=== PATIENT | female | born 1975 | race Caucasian/White ===

== ENCOUNTER 2020-05-15 14:51 | Emergency (ER) | payer OTHER, SELFPAY ==
[2020-05-15 14:52] VITALS: BP 147/81; PULSE 96; RESP 20; TEMP 36.8; O2SAT 100; BMI 36.6
--- NOTE | 2020-05-15 15:15 | CT_ITS ---
PROCEDURE: CT ABDOMEN PELVIS WO CON CLINICAL INDICATION: pain Right lower abdominal pain COMPARISON: No exams were available for comparison TECHNIQUE: Axial images obtained with sagittal and coronal reformats. All CT scans at the facility use one or more dose reduction, viz: automated exposure control, ma/kV adjustment per patient size (including targeted exams where dose is matched to indication, i.e. head), or iterative reconstruction technique. FINDINGS: LOWER THORAX: Coronary artery calcification ABDOMEN & PELVIS: Fatty liver. The spleen, adrenal glands, pancreas, and kidneys have an unremarkable appearance. Calcification overlying the left renal pelvis is likely vascular. No evidence of appendicitis. No intestinal obstruction or free air. No evidence diverticulitis. No renal or ureteral calculi No acute bony finding. IMPRESSION: No acute finding Dictated by: Tom Cosme MD 05/15/2020 16:21 Tom Cosme MD in [place] 05/15/2020 16:21
--- NOTE | 2020-05-15 15:22 | PC.NURSE ---
Pt unable to urinate at this time.
--- NOTE | 2020-05-15 15:35 | PC.NURSE ---
patient to xray
[2020-05-15 15:40] LABS: Basophils # 0.1 K/mm3 (0-0.2); Basophils % 1.2 % (0.1-2.0); Eosinophils # 0.2 K/mm3 (0.0-0.4); Eosinophils % 1.2 % (0.1-12.0); Hematocrit 46.1 % (37.0-47.0); Lymphocytes # 3.8 K/mm3 (0.7-4.5); Lymphocytes % 31.4 % (10-50); Mean Corpuscular HGB Conc 32.5 g/dL (31.8-35.4); Mean Corpuscular Hemoglobin 31.5 pg (27.0-31.2); Mean Corpuscular Volume 96.9 fl (81-99); Mean Platelet Volume 7.9 fl (7.4-10.4); Monocytes # 0.6 K/mm3 (0.1-1.0); Monocytes % 5.3 % (1.7-9.3); Neutrophils # 7.3 K/mm3 (1.8-7.8); Neutrophils % 60.9 % (37.0-80.0); Platelet Count 272 K/mm3 (142-424); Red Blood Count 4.76 M/mm3 (4.20-5.40); Red Cell Distribution Width 14.3 % (11.5-17.5)
[2020-05-15 15:43] LABS: Chloride 104 mmol/L (98-107); Potassium 4.1 mmoL/L (3.5-5.1); Sodium 140 mmol/L (136-145)
[2020-05-15 15:45] LABS: Blood Urea Nitrogen 14 mg/dl (7-17); Creatinine Clearance Estimated 125 mL/min (50-200); Estimated Glomerular Filt Rate 77 ml/min (>60); GFR (African American) 93 ML/MIN (>60)
[2020-05-15 15:46] LABS: Alanine Aminotransferase 32 U/L (12-78); Albumin Level 4.3 g/dl (3.5-5.0); Albumin/Globulin Ratio 1.1 (1.1-1.8); Alkaline Phosphatase 93 U/L (38-126); Anion Gap 11.1 mEq/L (5-15); Aspartate Amino Transferase 34 U/L (14-36); Bilirubin,Total 0.5 mg/dl (0.2-1.3); Calcium 10.2 mg/dl (8.4-10.2); Carbon Dioxide 29 mmol/L (22.0-30.0); Globulin 3.8 g/dL (1.3-3.2); Glucose 121 mg/dl (74-100); Lipase 75 U/L (23-300); Total Protein,Serum 8.1 g/dl (6.3-8.2)
[2020-05-15 15:59] VITALS: BP 162/80; PULSE 95; O2SAT 97
[2020-05-15 16:06] VITALS: BP 162/80; PULSE 98; O2SAT 96
[2020-05-15 16:30] VITALS: BP 166/78; PULSE 93; O2SAT 98
--- NOTE | 2020-05-15 17:32 | [facility].EDGENADL ---
ED Disposition Clinical Impression: Pyelonephritis Disposition: Home, Self-Care Condition on Discharge: Good Instructions: DI for Kidney Infection Prescriptions: cephALEXin [cephALEXin 500mg capsule*] 500 mg PO BID 10 Days #20 cap Prescription Printed Referrals: PCP,Saranya [Primary Care Provider] - Leonel Blank MD [Staff Physician] - - Critical Care Critical Care Time: No Attestation: On 05/15/20, the high probability of a clinically significant, sudden or life threatening deterioration of the following system(s) required my full and direct attention, intervention and personal management. The time I documented below is in addition to time spent performing reported procedures but includes the following listed in this critical care notation. Medical Decision Making - Medical Records Medical records reviewed: Yes: I reviewed the patient's medical records. - [place] Inquiry Pt receiving controlled substance: No Vital Signs: 05/15/20 14:52 05/15/20 15:59 05/15/20 16:06 Temperature 98.2 F Temperature Source Oral Pulse Rate [Left Radial] 96 H 95 H 98 H Respiratory Rate 20 Blood Pressure [Right Arm] 147/81 H 162/80 H 162/80 H Blood Pressure Mean [Right Arm] 103 107 107 Blood Pressure Source [Right Arm] Automatic Cuff Automatic Cuff Automatic Cuff Blood Pressure Position [Right Arm] Sitting Sitting Sitting 02 Sat by Pulse Oximetry 100 97 96 Oxygen Delivery Method Room Air Room Air 05/15/20 16:30 05/15/20 17:49 Temperature Temperature Source Pulse Rate [Left Radial] 93 H 101 H Respiratory Rate Blood Pressure [Right Arm] 166/78 H 143/62 H Blood Pressure Mean [Right Arm] 107 89 Blood Pressure Source [Right Arm] Automatic Cuff Automatic Cuff Blood Pressure Position [Right Arm] Sitting Sitting 02 Sat by Pulse Oximetry 98 92 L Oxygen Delivery Method Room Air Room Air - Lab Data Lab Results 05/15/20 15:25: WBC 12.0 H, RBC 4.76, Hgb 15.0, Hct 46.1, MCV 96.9, MCH 31.5 H, MCHC 32.5, RDW 14.3, Plt Count 272, MPV 7.9, Neut % (Auto) 60.9, Lymph % (Auto) 31.4, [place] % (Auto) 5.3, Eos % (Auto) 1.2, Baso % (Auto) 1.2, Neut # (Auto) 7.3, Lymph # (Auto) 3.8, [place] # (Auto) 0.6, Eos # (Auto) 0.2, Baso # (Auto) 0.1 05/15/20 15:25: Sodium 140, Potassium 4.1, Chloride 104, Carbon Dioxide 29, Anion Gap 11.1, BUN 14, Creatinine 0.80, Estimated Creat Clear 125, Estimated GFR 77, Est GFR ( Amer) 93, Glucose 121 H, Calcium 10.2, Total Bilirubin 0.5, AST 34, ALT 32, Alkaline Phosphatase 93, Total Protein 8.1, Albumin 4.3, Globulin 3.8 H, Albumin/Globulin Ratio 1.1, Lipase 75 05/15/20 18:00: Urine Color Yellow, Urine Appearance Clear, Urine pH 7.0, Ur Specific [place] 1.020, Urine Protein Negative, Urine Glucose (UA) Negative, Urine Ketones Negative, Urine Blood 3+, Urine Nitrate Positive, Urine Bilirubin Negative, Urine Urobilinogen 0.2, Ur Leukocyte Esterase Negative, Urine RBC Occasional, Urine WBC Occasional, Ur Squamous Epith Cells 3-5, Amorphous Sediment 3+, Urine Bacteria 1+ Result diagrams: 05/15/20 15:25 05/15/20 15:25 - CT Data CT Scan: Abdomen, Pelvis Time Received: 19:[address] Reviewed: Yes: I have reviewed the patient's CT results, I have viewed the radiologist's interpretation Preliminary Findings: Normal/NAD, No Fracture Seen - Reevaluation(s) Time: 19:07 Reevaluation #1: On reevaluation, patient is feeling much better. Repeat abdominal exam is benign. Tolerating oral intake. Patient has evidence of urinary tract infection. Patient be discharged with short course antibiotics. Needs follow-up with PCP. Given strict return precautions. Verbalized understanding. Medical Decision Narrative: 45-year-old female presented with right flank pain and hematuria. Concern for possible kidney stone. Work-up initiated. General Adult HPI - General Chief complaint: PAIN Stated complaint: urinating blood, pain in right side Time Seen by Provider: 05/15/20 14:55 Mode of Arrival: Ambulatory [facility]
[2020-05-15 17:49] VITALS: BP 143/62; PULSE 101; O2SAT 92
--- NOTE | 2020-05-15 17:52 | PC.NURSE ---
Pt states she is still unable to urinate at this time.
[2020-05-15 18:03] LABS: Microscopic, Urine URINE MICROSCOPIC (MICROSCOPIC)
[2020-05-15 18:05] LABS: Appearance,Urine CLEAR (Clear); Bilirubin,Urine Negative (Negative); Blood, Urine 3+ (Negative); Color,Urine YELLOW (Yellow); Glucose,Urine (UA) Negative (Negative); Ketones,Urine Negative (Negative); Leukocyte Esterase,Urine Negative (Negative); Nitrate,Urine POSITIVE (Negative); Protein,Urine Negative (Negative); Urobilinogen,Urine 0.2 EU/dl (0.2)
[2020-05-15 18:10] LABS: Amorphous Sediment,Urine 3+ /lpf; Bacteria,Urine 1+ /lpf; RBC,Urine Occasional #/hpf (0-3); WBC,Urine Occasional #/hpf (0-3)
[2020-05-15 19:13] VITALS: BP 143/62; PULSE 101; RESP 20; TEMP 36.8; O2SAT 99
== END 2020-05-15 19:14 | disposition home or self-care (01) ==
PROVIDERS: Emergency Provider Emergency Medicine
DX: N12 Tubulo-interstitial nephritis, not specified as acute or chronic (principal)
CPT/HCPCS: 74176; 80053; 81001; 83690; 85025; 99284